=== PATIENT | female | born 1940 | race Caucasian/White ===

== ENCOUNTER 2025-08-19 16:23 | Emergency (ER) | payer MEDICARE, SELFPAY ==
--- NOTE | ~2025-08-19 | CT_ITS ---
CLINICAL HISTORY: fall CT cervical spine without contrast Comparison: None provided Findings: C1-2: Mild anterior osteoarthrosis. C2-3: Grade 1 anterolisthesis C2 over C3. C3-4: Grade 1 anterolisthesis C3 over C4. C4-5: Grade 1 anterolisthesis C4 over C5. C5-6: Moderate DJD. Mild anterior spurring. Grade 1 anterolisthesis C5 over C6. C6-7: Grade 1 anterolisthesis C6 over C7. Moderate DJD. [id number] anterior spurring. No significant degenerative change. Mild osteopenia Visualized intracranial contents are unremarkable. Soft tissues of the neck are normal. No consolidation or effusion at the lung apices. Congenital nonunion of the posterior arch of C1, midline. IMPRESSION: 1. Grade 1 anterolisthesis of C2 through C6 vertebrae over their respective inferior vertebrae. 2. Moderate degenerative joint disease at C5-C6 and C6-C7 levels with mild to moderate anterior spurring. 3. Mild osteopenia. 4. Mild anterior osteoarthrosis at C1-C2. 5. No acute cervical spine findings. This document has been electronically signed by: Korey Contreras MD on 08/19/2025 19:02:46
--- NOTE | ~2025-08-19 | XR_ITS ---
CLINICAL HISTORY: pain 1 view chest x-ray Comparison: None provided Findings: The lungs are clear. Cardiomegaly. Moderate calcified atherosclerotic disease of the aortic arch. Mild osteopenia. IMPRESSION: 1. Cardiomegaly. 2. Moderate calcified atherosclerotic disease of the aortic arch. 3. No acute cardiopulmonary findings. This document has been electronically signed by: Korey Contreras MD on 08/19/2025 17:59:14
--- NOTE | ~2025-08-19 | CT_ITS ---
CLINICAL HISTORY: fall CT head without contrast Comparison: None provided Findings: No intra-axial mass, midline shift, hydrocephalus, or acute hemorrhage. Heterogeneous low attenuation in the periventricular white matter. There is no sinus or mastoid fluid. The orbits are within normal limits. No skull fracture. IMPRESSION: 1. Chronic periventricular microvascular ischemic disease. 2. No acute intracranial findings. This document has been electronically signed by: Korey Contreras MD on 08/19/2025 19:03:40
[2025-08-19 16:31] VITALS: BP 127/78; BP 210/108; PULSE 74; PULSE 76; RESP 18; O2SAT 97; O2SAT 98; BMI 26.9
[2025-08-19 16:40] VITALS: BP 127/78; PULSE 74; RESP 18; O2SAT 97
--- NOTE | 2025-08-19 16:52 | ED.FALL ---
HPI - Fall General Chief Complaint: Fall Stated Complaint: Fall w/ head strike. No loc/thinners Time Seen by Provider: 08/19/25 16:30 History of Present Illness HPI Narrative: Patient is an 85-year-old female presents today at from the [facility] patient tripped fell hit the back of her head. There was no loss of consciousness no nausea no vomiting not on blood thinners not on Plavix patient from home. No pain. Answering question. Related Data Allergies Allergy/AdvReac Type Severity Reaction Status Date / Time Penicillins Allergy Hives Verified 08/19/25 16:41 Review of Systems Review of Systems: Positive head injury Yes all other systems are reviewed and are negative [facility] Past Medical History Attestation statement: The following information was validated with the patient. Social History Social History Alcohol intake: current Alcohol intake frequency: holidays/special occasions only Alcohol type: wine Smoked in Last 30 Days: No Use of substances other than those prescribed or required for medical reasons: No Advance Directives: No Advance Directives Information Provided: No Do you have a plan to hurt others: No Plan Physical Exam Exam: Exam: Appearance: Alert. Oriented X3. No acute distress. Eyes: Pupils equal, round and reactive to light. ENT: Pharynx normal. Neck: Normal inspection. Neck supple. No lymph nodes noted. No crepitus CVS: Normal heart rate and rhythm. Pulses normal. Normal S1 and S2 Respiratory: No respiratory distress. Breath sounds normal. No Wheezing. No rales Abdomen: Soft and nontender. No rigidity. No distention. good BS x4 Skin: Skin warm and dry. Normal skin color. Normal skin turgor. Extremities: No lower extremity edema. Neurovascular intact to all extremities. No Lacerations. No Rash Neuro: Oriented X 3. No motor deficit. No sensory deficit. Moving all extermities. No slurred speech Vital Signs: Vital Signs: Last Vital Signs Temp 98.1 F 08/19/25 19:15 Pulse 67 08/19/25 19:15 Resp 16 08/19/25 19:15 BP 142/58 H 08/19/25 19:15 Pulse Ox 99 08/19/25 19:15 O2 Del Method Room Air 08/19/25 19:15 BMI result Body Mass Index 26.9 Medical Decision Making Medical Decision Making [facility] Narrative: CT scan of the head and C-spine was grossly negative for any acute evidence of bleed or fracture. Patient is currently in stable condition. Patient's hemoglobin is 13.5. Patient's electrolytes showed a normal creatinine. Differential Diagnosis Differential Diagnoses: The differential diagnosis associated with the presentation includes Admission/Observation Consideration of admission/observation: Escalation of care including admission/observation considered Lab Data [facility] Lab Attestation statement: I reviewed the patient's lab results. 08/19/25 17:57 08/19/25 17:57 Labs: Lab Results 08/19/25 Range/Units 17:57 WBC 7.4 (4.8-10.8) X10*3/uL RBC 3.79 L (4.20-5.50) X10*6/uL Hgb 13.5 (12.0-16.0) g/dl Hct 38.7 (37.0-47.0) % MCV 102.1 H (80.0-98.0) fL MCH 35.6 H (27.0-33.0) pg MCHC 34.9 (31.0-35.0) g/dl RDW 12.3 (11.0-16.0) % Plt Count 189 (160-400) X10*3/uL MPV 8.9 L (9.4-12.3) fL Immature Gran % (Auto) 0.3 (0.0-0.4) % Neut % (Auto) 54.8 (45-73) % Lymph % (Auto) 32.0 (20-40) % Avery % (Auto) 8.0 (2-11) % Eos % (Auto) 4.2 H (0-4) % Baso % (Auto) 0.7 (0-2) % Lymph # (Auto) 2.4 (1.2-4.9) X10*3/uL Avery # (Auto) 0.6 (0.1-1.2) X10*3/uL Eos # (Auto) 0.3 (0.0-0.4) X10*3/uL Baso # (Auto) 0.1 (0.0-0.2) X10*3/uL Abs Immat Gran (auto) 0.02 (0.00-0.03) X10*3/uL Absolute Neuts (auto) 4.1 (2.0-8.3) x10*3/uL Absolute Nucleated RBC 0.000 (0.0-0.012) X10*3/uL Nucleated RBC % (auto) 0.0 (0.0-0.2) /100WBC Sodium 140 (135-145) mmol/L Potassium 3.1 L (3.3-5.1) mmol/L Chloride 104 (96-108) mmol/L Carbon Dioxide 27 (22-29) mmol/L Anion Gap 12 (12-20) BUN 14 (9-16) mg/dL Creatinine 0.63 (0.5-1.4) mg/dL Estim Creat Clear Calc 56.4 Estimated GFR > 60 Random Glucose 110 (60-115) mg/dL Calcium 9.7 (8.4-10.2) mg/dL Independent Interpretation I performed an independent interpretation of an: CT Scan (CT head negative for acute evidence of bleeding) Radiology Impression Discussion of test interpretation with radiology: I have reviewed the radiologist's reading. Chronic Conditions History of rheumatoid arthritis Social Determinants Patient?s care significantly limited by Social Determinants of Health including: Problems related to primary support group Discharge Plan Discharge Clinical Impression: Head injury Patient Disposition: Home, Self-Care Instructions: Head Injury (DC) Referrals: Physician,Nii J [Primary Care Provider, Medical] - 08/22/25 Print Language: [place]
--- OUTSIDE RECORDS SUMMARY | 2025-08-19 17:17 | XMS_ITS | Clinical Summary ---
Author Organization [facility] [address] [place] [address] [address] [place] [address] Phone Care Team Providers Care Tunnel Drier Operator Name Role Phone Evin Velazco Primary Care Provider [phone] Allergies Active Allergy Reactions Criticality Noted Date Comments Codeine Nausea And Vomiting Medium 04/08/2011 Penicillins Rash Medium 04/08/2011 Medications adalimumab (Humira,CF, Pen) 40 mg/0.4 mL pen Inject 40 mg into the skin every 14 days. - Subcutaneous 08/16/20 21 Active methotrexate 2.5 mg tablet Take 6 Tablets by mouth once a week. 06/28/20 21 Active folic acid (FOLVITE) 400 mcg tablet Take by mouth. 06/21/20 20 Active red yeast rice 600 mg capsule Take 1 Cap by mouth daily. Active valsartan-hydro CHLOROthiazide (DIOVAN-HCT) 320-25 mg per tablet TAKE 1 TABLET BY MOUTH EVERY DAY 90 tablet 3 10/01/19 25 Active atorvastatin (LIPITOR) 20 mg tabletIndicatio ns:Peripheral vascular disease, unspecified (CMS/HCC V24),Impaired fasting glucose TAKE 1 TABLET BY MOUTH EVERY DAY 90 tablet 1 03/07/20 25 Active atenoloL (TENORMIN) 50 mg tablet TAKE 1 AND 1/2 TABLETS DAILY BY MOUTH 135 tablet 06/22/20 25 Active oxyCODONE-aceta minophen (PERCOCET) 5-325 mg per tablet Take 1 tablet by mouth 4 (four) times a day. Max Daily Amount: 4 tablets 40 tablet 08/17/20 25 Active oxyCODONE-aceta minophen (PERCOCET) 5-325 mg per tablet Take 1 tablet by mouth 4 (four) times a day. Max Daily Amount: 4 tablets 40 tablet 07/20/20 25 025 Discontin ued(Reord er) Active Problems Problem Noted Date Diagnosed Date Osteoarthritis 12/23/2024 Polymyalgia rheumatica 07/21/2024 Overview (07/21/2024): Onset ~ 2001. Prednisone x 3 yrs - Senior Compliance Analyst Dr. Ernst ([facility]) Symptoms returned fall 2010 - again responded to prednisone but RF positive Mild tricuspid regurgitation 10/28/2023 Mild mitral regurgitation 10/28/2023 Mild aortic stenosis 10/28/2023 Recurrent major depressive disorder 10/28/2022 Osteoporosis 10/28/2022 White coat syndrome with hypertension 10/19/2018 PVD (peripheral vascular disease) 03/27/2017 Spondylosis of lumbosacral r egion without myelopathy or radiculopathy 01/19/2016 History of total hip arthroplasty 01/12/2015 Overview (07/21/2024): Right hip, October 2014 Impaired fasting glucose 03/16/2013 Pseudogout 02/15/2013 Overview (07/21/2024): January 2013: inflammatory fluid, chondrocalcinosis, 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 ON prednisone [id number]. Methotrexate added [id number] stopped as symptoms subsided. Return of symptoms fall 2010, now RF positive. Prednisone restarted 07/12.Methotrexate started 10/13. Remicade added 01/11 - stopped 11/16 - cost issues Last Assessment & Plan: Increase the methotrexate to 7 tab once a week Lab work in 2 months Carpal tunnel syndrome on both sides 07/12/2011 Overview (07/21/2024): Nerve Tests Done on [facility] No surgery as of 2010 Spinal stenosis 04/08/2011 Overview (07/21/2024): And scoliosis; S/p 3 epidural injections -2010 Hypercholesteremia 04/08/2011 Asthma 04/08/2011 Overview (07/21/2024): Worse as a child; previously hospitalized; never intubated Acquired hallux rigidus 04/08/2011 Overview (07/21/2024): previously treated in [facility] with PT and Voltaren gel Most recently seen by dr mauro In [place] Hypertension 04/08/2011 Encounters Date Type Department Care Team Description 07/25/2025 9:30 AM EST Office Visit Adult Medicine [address] [phone] Nor[place], [place] Primary hypertension (Primary Dx); White coat syndrome with hypertension; Hypercholesteremia; Rheumatoid arthritis, seropositive, multiple sites ([facility] V24, [facility] V28); Spondylosis of lumbosacral region without myelopathy or radiculopathy; Encounter for long-term (current) use of medications; Age-related osteoporosis without current pathological fracture; Recurrent major depressive disorder, remission status unspecified ([facility] V24); Need for prophylactic vaccination and inoculation against influenza from Last 3 Months Immunizations Immunization Administration Dates Next Due Influenza Quadravalent, MDCK , 0.5ml, preservative free (Flucelvax) 6mo and older 05/20/2019 Influenza Quadravalent, brendan mbinant, 0.5ml, preservative free (Flublok) 18yo and older 05/26/2020 Influenza trivalent, 0.5mL ( Fluad) 65yo and older 07/25/2025,06/07/2024,06/10/2023,06/08,05/16/2021,06/16/2018,05/19/2017 ,05/16/2015 Influenza trivalent, 0.5mL, preservative free (Fluarix; FluLaval; Fluzone) ages 6mo and older (Afluria) 3 years and older 07/03/2016,06/28/2014,05/25/2013,05/13 Influenza, Unspecified 06/03/2022,05/16/2021, PPD Test 09/07/2012 Pfizer SARS-CoV-2 COVID-19, mRNA, LNP-S, preservative free 11/07/2020,10/17/2020 Pneumococcal conjugate 13 va lent (Prevnar 13, PCV13) 2mo and older 01/12/2015 Pneumococcal polysaccharide 23 valent (Pneumovax 23) 2yo and older 05/31/2013 Td Tetanus diptheria (Tdvax) 7yo and older 02/04/2013 Surgical History Surgery Date Site/Laterality Comments MULTIPLE TOOTH EXTRACTIONS PROCEDURE: HISTORICAL DENTAL EXTRACTION; COMMENT: inplants on bottom OTHER SURGICAL HISTORY -2001 PROCEDURE: ARTHROSCOPY SHOULDER SURGI; COMMENT: decompression on left TONSILLECTOMY PROCEDURE: HISTORICAL TONSILLECTOMY OTHER SURGICAL HISTORY Dr. Issa PROCEDURE: HISTORY OTHER; COMMENT: Right total hip replacement 2014 CATARACT EXTRACTION PROCEDURE: HISTORICAL CATARACT REMOVAL; COMMENT: bilat OTHER SURGICAL HISTORY Left PROCEDURE: HISTORY OTHER; COMMENT: left fem pop angioplasty BREAST BIOPSY Left PROCEDURE: BX BREAST; PERC NEEDLE CORE W/IMAG GUID; COMMENT: asp Medical History Medical History Date Comments Polymyalgia rheumatica ([facility] V24) [id number] DX:Polymyalgia rheumatica ([facility]); COMMENT: Prednisone x 3 yrs Asthma DX:Asthma; COMME NT: on/off; prev hospitalized; never intubated Rheumatoid arthritis(714.0) 08/16/2011 DX:R heumatoid arthritis(714.0) Heart disease, unspecified DX:He art disease, unspecified Impaired fasting glucose 03/16/2013 DX:Impa ired fasting glucose Unspecified essential hypertension DX:Unspecified essential hypertension Family History Medical History Relation Name Comments Arthritis Mother Glaucoma Mother Breast cancer Other mat cousin Blindness Neg Hx Cataracts Neg Hx Macular degeneration Neg Hx Strabismus Neg Hx Relation Name Status Comments Brother 1 Alive stroke Brother 2 Alive Father (Age 69) heart Mother (Age 79) heart Other mat cousin Alive Sister 1 (Age 75) polymyalgi a dm Sister 2 Alive Social History Tobacco Use Types Packs/Day Years Used Date Smoking Tobacco: Former Cigarettes 0 Q uit: 09/01/1975 Smokeless Tobacco: Never Tobacco Cessation:Counseling Given: Not Answered Alcohol Use Standard Drinks/Week Comments Yes 1 (1 standard drink = 0.6 oz pur e alcohol) Housing Instability Answer Date Recorde d Are you worried that in the next 2 months you may not have stable housing? No 09/07/2024 Food Access & Nutrition Answer Date Rec orded Do you have access to a vari ety of food including fruits and vegetables? Yes 09/07/2024 Access to Healthcare Answer Date Record ed Within the last 3 months, ho w many times did you visit the emergency department for your medical care? 0 09/07/2024 Health Literacy Answer Date Recorded How often do you need to hav e someone help you when you read instructions, pamphlets, or other written material from your doctor or pharmacy? Never 09/07/2024 Caregiver: How often do you need to have someone help you when you read instructions, pamphlets, or other written material from your doctor or pharmacy? Not on file 09/07/2024 Financial Risk Answer Date Recorded How hard is it for you to pa y for the very basics like food, housing, medical care, and air conditioning / heating? Not very hard 09/07/2024 Transportation Answer Date Recorded Has the lack of transportati on kept you from meetings, work, or from getting things needed for daily living? No Has the lack of transportati on kept you from medical appointments or from getting medications? No 09/07/2024 Social Isolation Answer Date Recorded How often do you feel lonely or isolated from th ose around you? Never 09/07/2024 Food Risk Answer Date Recorded Within the past 12 months we worried whether our food would run out before we got money to buy more. Never true 09/07/2024 Within the past 12 months th e food we bought just didn't last and we didn't have money to get more. Never true 09/07/2024 Dependent Care Answer Date Recorded Do you need help finding or paying for care for your loved ones. For example, childhood development teacher or elderly care for an older adult? No 09/07/2024 Education Answer Date Recorded Do you think completing more education or training, like finishing a GED, going to college, or learning a trade, would be helpful for you? No 09/07/2024 Employment and Income Answer Date Recor ded During the last four weeks, have you been actively looking for work? No 09/07/2024 Living Situation Answer Date Recorded What is your living situation? Unrecognized valu e 09/07/2024 Comments No Sex and Gender Information Value Date Recorded Sex Assigned at Not on file Legal Sex Female 10:03 AM EST Gender Identity Not on file Sexual Orientation Not on file Obstetrics History Para Term AB IAB SAB Ectopic Multiple Livin g Live Births 3 3 3 3 Date Outcome GA Total Labor Labor/2nd/3rd Weight Sex Type Anes PTL Kenisha A1 A5 Name Clin Term Term Term Last Filed Vital Signs Vital Sign Reading Time Taken Comments Blood Pressure 138/88 07/25/2025 9:58 AM EST Pulse 66 07/25/2025 9:22 AM EST Temperature 36.1 C (96.9 F) 07/25/2025 9:22 AM EST Respiratory Rate 14 07/25/2025 9:22 AM EST Oxygen Saturation 98% 07/25/2025 9:22 AM EST Inhaled Oxygen Concentration - - Weight 64 kg (141 lb) 07/25/2025 9:22 AM EST Height 160 cm (5' 3 ) 07/25/2025 9:22 AM EST Body Mass Index 24.98 07/25/2025 9:22 AM EST Plan of Treatment Upcoming Encounters Date Type Department Care Team (Late st Contact Info) Description 10/25/2025 11:00 AM EST Office Visit Adult Medicine [address] [phone] Evin Velazco PA [address] [place] [phone] Health Maintenance Due Date Last Done Comments Naloxone Order 1938 Opioid Substance Agreement 1938 Pain Assessment 1938 Zoster Vaccines (1 of 2) 1988 RSV Immunization Adult Patients (1 - 1-dose 75+ series) 2013 Medicare Annual Wellness Visit 08/10/2022 COVID-19 Vaccine ( season) 2025 06/11/2021, 11/07/2020, 10/17/2020 Drug Screen 09/07/2025 09/07/2024, 09/07/2024 Falls Risk Assessment 09/07/2025 09/07/2024 Hypertension/CHF/CAD Annual BMP Blood Test 09/07/2025 09/07/2024, 08/06/2023 Social Influencers of Health Screening 09/07/2025 09/07/2024 Cholesterol Screening (Lipid Panel) 09/07/2029 09/07/2024, 08/06/2023 Osteoporosis Screening (Bone Density Screening) 07/19/2034 07/19/2019 DTaP,Tdap,and Td Vaccines Discontinued 02/04/2013 Pneumococcal Vaccine: 50+ Years Completed 01/12/2015, 05/31/2013 Depression Screening Completed 09/07/2024 Influenza Vaccine Completed 07/25/2025, , 06/10/2023, Additional history exists HIB Vaccines Aged Out No longer eligi ble based on patient's age to complete this topic HPV Vaccines Aged Out No longer eligi ble based on patient's age to complete this topic Hepatitis A Vaccines Aged Out No long er eligible based on patient's age to complete this topic Hepatitis B Vaccines Aged Out No long er eligible based on patient's age to complete this topic IPV Vaccines Aged Out No longer eligi ble based on patient's age to complete this topic MMR Vaccines Aged Out No longer eligi ble based on patient's age to complete this topic Meningococcal ACWY Vaccine Aged Out N o longer eligible based on patient's age to complete this topic Meningococcal B Vaccine Aged Out No l onger eligible based on patient's age to complete this topic RSV Immunization Patients Under 20 months Aged Out No longer eligible based on patient's age to complete this topic Varicella Vaccines Aged Out No longer eligible based on patient's age to complete this topic Procedures Procedure Name Priority Date/Time Associated Diagnosis Comments COMPREHENSIVE METABOLIC PANEL Routine 09/07/2024 1:33 PM EST Osteoporosis, unspecified osteoporosis type, unspecified pathological fracture presence Recurrent major depressive disorder, remission status unspecified ([facility] V24) Rheumatoid arthritis, seropositive, multiple sites ([facility] V24, [facility] V28) Polymyalgia rheumatica ([facility] V24) Mild mitral regurgitation Mild aortic stenosis PVD (peripheral vascular disease) ([facility] V24) Hypercholesteremia Primary hypertension LIPID PANEL WITH REFLEX TO DIRECT LDL Routine 09/07/2024 1:33 PM EST Osteoporosis, unspecified osteoporosis type, unspecified pathological fracture presence Recurrent major depressive disorder, remission status unspecified ([facility] V24) Rheumatoid arthritis, seropositive, multiple sites ([facility] V24, [facility] V28) Polymyalgia rheumatica ([facility] V24) Mild mitral regurgitation Mild aortic stenosis PVD (peripheral vascular disease) ([facility] V24) Hypercholesteremia Primary hypertension DRUG ABUSE SCREEN EXPANDED WITH REFLEX CONFIRMATION, URINE Routine 09/07/2024 1:33 PM EST Osteoporosis, unspecified osteoporosis type, unspecified pathological fracture presence Recurrent major depressive disorder, remission status unspecified ([facility] V24) Rheumatoid arthritis, seropositive, multiple sites ([facility] V24, [facility] V28) Polymyalgia rheumatica ([facility] V24) Mild mitral regurgitation Mild aortic stenosis PVD (peripheral vascular disease) ([facility] V24) Hypercholesteremia Primary hypertension rn long term care (current) use of opiate analgesic DXA BONE DENSITY STUDY 1+ SITS AXIAL SKEL Routine 07/19/2019 11:15 AM EST Rheumatoid arthritis with rheumatoid factor of multiple sites without organ or systems involvement ([facility] V24, [facility] V28) Other halfway (current) drug therapy Menopausal and female climacteric states from Last 3 Months or Most Recently Relevant to Health Maintenance Results * (ABNORMAL) Drug abuse screen expanded with reflex confirmation, urine (09/07/2024 1:33 PM EST) Amphetamine Screen, Ur Negative Negative LAB CHEMISTRY METHOD 5 5:08 PM [facility] Comment:Certain OTC medicati ons containing ephedrine, phenylephrine, pseudoephedrine and phenylpropanolamine can cause false positive results. Barbiturate Screen, Ur Negative Negative LAB CHEMISTRY METHOD 5 5:08 PM [facility] Benzodiazepine Screen, Ur Negative Negative LAB CHEMISTRY METHOD 5 5:08 PM [facility] Cocaine Screen, Ur Negative Negative LAB CHEMISTRY METHOD 5 5:08 PM [facility] Opiate Screen, Ur Negative Negative LAB CHEMISTRY METHOD 5 5:08 PM [facility] Cannabinoid (THC) Screen, Ur Negative Negative LAB CHEMISTRY METHOD 5 5:08 PM [facility] Comment:Specimens from patie nts taking pantoprazole sodium (Protonix) have been shown to produce false positive results. Fentanyl, Ur Negative Negative LAB CHEMISTRY METHOD 5 5:08 PM [facility] Oxycodone Screen, Ur Positive(A ) Negative LAB CHEMISTRY METHOD 5 5:08 PM [facility] Urine Urine specimen obtained by clean catch procedure / Unknown Non-blood Collection / Unknown 09/07/2024 1:33 PM EST 09/07/2024 1:33 PM EST [facility] - 09/07/2024 5:08 PM EST Assay cutoffs: Amphetamines 1000 ng/mL Barbiturates 200 ng/mL Benzodiazepines 200 ng/mL Cocaine 300 ng/mL Fentanyl 1 ng/mL Opiates 300 ng/mL Oxycodone 100 ng/mL THC 50 ng/mL Semi-quantitative assay for screening purposes only. Unconfirmed screening result should not be used for non-medical purposes. *POSITIVE RESULTS ARE AUTOMATICALLY SENT FOR ALTERNATE METHOD CONFIRMATION* Evin ROBBINS LAB URINE ORDERABLES Yanet l Result [facility] [address] [place] [address], * Lipid panel with reflex to direct LDL (09/07/2024 1:33 PM EST) Cholesterol 183 0 - 200 mg/dL LAB CHEMISTRY METHOD 09/07/2024 4:54 PM [facility] Triglycerides 123 0 - 150 mg/dL LAB CHEMISTRY METHOD 09/07/2024 4:54 PM [facility] HDL 91 >=40 mg/dL LAB CHEMISTRY METHOD 09/07/2024 4:54 PM EST [facility] LDL Calculated 67 0 - 100 mg/dL LAB CHEMISTRY METHOD 09/07/2024 4:54 PM EST [facility] VLDL Cholesterol Judson 24.6 mg/dL LAB CHEMISTRY METHOD 09/07/2024 4:54 PM [facility] Non HDL Chol. (LDL+VLDL) 92 <145 mg/dL LAB CHEMISTRY METHOD 09/07/2024 4:54 PM [facility] Chol/HDL Ratio 2.0 0.0 - 4.4 LAB CHEMISTRY METHOD 09/07/2024 4:54 PM [facility] Blood Venous blood specimen / Unknown Venipuncture / Unknown 09/07/2024 1:33 PM EST 09/07/2024 1:33 PM EST Evin ROBBINS LAB BLOOD ORDERABLES Yanet gordon Result [facility] [address] [place] [address], [place] [phone] * (ABNORMAL) Comprehensive metabolic panel (09/07/2024 1:33 PM EST) Sodium 133 133 - 145 mmol/L LAB CHEMISTRY METHOD 09/07/2024 4:48 PM [facility] Potassium 4.2 3.5 - 5.5 mmol/L LAB CHEMISTRY METHOD 09/07/2024 4:48 PM [facility] Chloride 98 96 - 110 mmol/L LAB CHEMISTRY METHOD 09/07/2024 4:48 PM [facility] CO2 31 21 - 32 mmol/L LAB CHEMISTRY METHOD 09/07/2024 4:48 PM [facility] Anion Gap 4 3 - 11 LAB CHEMISTRY METHOD 09/07/2024 4:48 PM [facility] Glucose 122(H) 70 - 100 mg/dL LAB CHEMISTRY METHOD 09/07/2024 4:48 PM [facility] BUN 13 5 - 25 mg/dL LAB CHEMISTRY METHOD 09/07/2024 4:48 PM [facility] Creatinine 0.72 0.50 - 1.10 mg/dL LAB CHEMISTRY METHOD 09/07/2024 4:48 PM [facility] eGFR 82 >=60 mL/min/1. 73m2 LAB CHEMISTRY METHOD 09/07/2024 4:48 PM [facility] Comment:Calculation based on the Chronic Kidney Disease Epidemiology Collaboration (CKD-EPI) equation refit without adjustment for race. BUN/Creatinine Ratio 18.1 LAB CHEMISTRY METHOD 09/07/2024 4:48 PM [facility] Calcium 9.9 8.5 - 10.5 mg/dL LAB CHEMISTRY METHOD 09/07/2024 4:48 PM [facility] AST (SGOT) 39 10 - 42 unit/L LAB CHEMISTRY METHOD 09/07/2024 4:48 PM [facility] ALT (SGPT) 26 10 - 60 unit/L LAB CHEMISTRY METHOD 09/07/2024 4:48 PM [facility] Alkaline Phosphatase 77 42 - 121 unit/L LAB CHEMISTRY METHOD 09/07/2024 4:48 PM [facility] Total Protein 7.5 6.0 - 8.0 g/dL LAB CHEMISTRY METHOD 09/07/2024 4:48 PM [facility] Albumin 4.0 3.2 - 5.0 g/dL LAB CHEMISTRY METHOD 09/07/2024 4:48 PM [facility] Total Bilirubin 0.7 0.0 - 1.4 mg/dL LAB CHEMISTRY METHOD 09/07/2024 4:48 PM [facility] Blood Venous blood specimen / Unknown Venipuncture / Unknown 09/07/2024 1:33 PM EST 09/07/2024 1:33 PM EST us Evin ROBBINS LAB BLOOD ORDERABLES Yanet heidi Result [facility] [address] [place] [address], * DXA BONE DENSITY STUDY 1+ SITS AXIAL SKEL (07/19/2019 11:15 AM EST) Anatomical Region Laterality Modality Bone Densitometr y 05/31/2019 9:24 AM EDT Narrative 07/19/2019 4:19 PM EST BONE DENSITY Lumbar Spine T-score is -0.1 (SD relative to 20-29 y/o adult) Z-score is +2.6 (SD relative to age matched peers) This is normal by criteria defined by the WHO. Left Hip T-score is -1.9 Z-score is +0.4 This is consistent with osteopenia by criteria defined by the WHO. LEFT WRIST T-score is -2.7 Z-score is + 0.5 This is consistent with osteoporosis. Comparison exam(s): significant decrease in bone density of wrist when compared to most recent bone density examination Confidence level is +/-95%. Impression: Based on the World Health Organization criteria, Olimpia Hardin should be classified as having osteoporosis. The [facility] Department of Internal Medicine recommends using National Osteoporosis Foundation (NOF) guidelines in treatment decisions related to osteoporosis. NOF guidelines suggest considering treatment for postmenopausal women and men aged 50 or older presenting with the following: History of hip or vertebral fracture. T-score less than or equal to -2.5 (DXA) at the femoral neck, total hip, or spine, after appropriate evaluation to exclude secondary causes. Low bone mass (T-score between -1.0 and -2.5 at the femoral neck or spine) AND a 10-year probability of a hip fracture greater than or equal to 3% OR a 10-year probability of a major osteoporosis-related fracture greater than or equal to 20% based on the [place]-adapted WHO algorithm Please note that all treatment decisions require clinical judgment and consideration of individual patient factors, including patient preferences, co-morbidities, previous drug use, risk factors not captured in the FRAX model (e.g., frailty, falls, vitamin D deficiency, increased bone turnover, interval significant decline in bone density) and possible under- or over-estimation of fracture risk by FRAX. Procedure Note Kandy Szymanski MD - 08/20/2022 BONE DENSITY Lumbar Spine T-score is -0.1 (SD relative to 20-29 y/o adult) Z-score is +2.6 (SD relative to age matched peers) This is normal by criteria defined by the WHO. Left Hip T-score is -1.9 Z-score is +0.4 This is consistent with osteopenia by criteria defined by the WHO. LEFT WRIST T-score is -2.7 Z-score is + 0.5 This is consistent with osteoporosis. Comparison exam(s): significant decrease in bone density of wrist whencompared to most recent bone density examination Confidence level is +/-95%. Impression: Based on the World Health Organization criteria, Olimpia Hardin should beclassified as having osteoporosis. The [facility] Department of Internal Medicine recommendsusing National Osteoporosis Foundation (NOF) guidelines in treatmentdecisions related to osteoporosis. NOF guidelines suggest consideringtreatment for postmenopausal women and men aged 50 or older presentingwith the following: History of hip or vertebral fracture. T-score less than or equal to -2.5 (DXA) at the femoral neck, total hip,or spine, after appropriate evaluation to exclude secondary causes. Low bone mass (T-score between -1.0 and -2.5 at the femoral neck or spine)AND a 10-year probability of a hip fracture greater than or equal to 3% ORa 10-year probability of a major osteoporosis-related fracture greaterthan or equal to 20% based on the [place]-adapted WHO algorithm Please note that all treatment decisions require clinical judgment andconsideration of individual patient factors, including patientpreferences, co-morbidities, previous drug use, risk factors not capturedin the FRAX model (e.g., frailty, falls, vitamin D deficiency, increasedbone turnover, interval significant decline in bone density) and possibleunder- or over-estimation of fracture risk by FRAX. Boyd Woods MD IM DXA PROCEDURES Final Res ult from Last 3 Months or Most Recently Relevant to Health Maintenance Insurance [employer] Care Teams Tunnel Drier Operator Relationship Specialty Start Date End Date Evin Velazco PA [address] [place] [address] PCP - General Internal Medicine 06/07/21
[2025-08-19 18:02] LABS: MANUAL DIFF FLAG NO
[2025-08-19 18:04] LABS: Hematocrit 38.7 % (37.0-47.0); Hemoglobin 13.5 g/dl (12.0-16.0); Imm Gran Abs Auto 0.02 X10*3/uL (0.00-0.03); Imm Gran Pct Auto 0.3 % (0.0-0.4); Lymphocytes Absolute Auto 2.4 X10*3/uL (1.2-4.9); Mean Corpuscular HGB Conc 34.9 g/dl (31.0-35.0); Mean Corpuscular Hemoglobin 35.6 pg (27.0-33.0); Mean Corpuscular Volume 102.1 fL (80.0-98.0); NRBC Abs Auto 0.000 X10*3/uL (0.0-0.012); NRBC Pct Auto 0.0 /100WBC (0.0-0.2); Platelet Count 189 X10*3/uL (160-400); Red Blood Count 3.79 X10*6/uL (4.20-5.50); White Blood Count 7.4 X10*3/uL (4.8-10.8)
[2025-08-19 18:14] LABS: Anion Gap 12 (12-20); Blood Urea Nitrogen 14 mg/dL (9-16); Calcium 9.7 mg/dL (8.4-10.2); Carbon Dioxide 27 mmol/L (22-29); Chloride 104 mmol/L (96-108); Creatinine Clr Calc Pharmacy 56.4; Estimated Glomerular Filt Rate > 60; Potassium 3.1 mmol/L (3.3-5.1); Sodium 140 mmol/L (135-145)
[2025-08-19 19:15] VITALS: BP 142/58; PULSE 67; RESP 16; TEMP 36.7; O2SAT 99
[2025-08-19 19:55] VITALS: BP 142/58; PULSE 67; RESP 16; TEMP 36.7; O2SAT 99
== END 2025-08-19 20:06 | disposition home or self-care (01) ==
PROVIDERS: Emergency Provider Emergency Medicine Emergency Medical Services
DX: S09.90XA Unspecified injury of head, initial encounter (principal); W01.0XXA Fall on same level from slipping, tripping and stumbling without subsequent striking against object, initial encounter; Y93.89 Activity, other specified; Y92.29 Other specified public building as the place of occurrence of the external cause; Y99.8 Other external cause status; Z79.899 Other long term (current) drug therapy
CPT/HCPCS: 36415; 70450; 71045; 72125; 80048; 85025; 99284

== ENCOUNTER → 2025-08-19 16:51 | Outpatient (BNV) | payer MEDICARE, SELFPAY | PROVIDERS: Emergency Provider Emergency Medicine Emergency Medical Services; Visit Provider Radiology Diagnostic Radiology | DX: M50.322 Other cervical disc degeneration at C5-C6 level (principal); M47.812 Spondylosis without myelopathy or radiculopathy, cervical region; Z04.3 Encounter for examination and observation following other accident; I67.82 Cerebral ischemia; I70.0 Atherosclerosis of aorta; I51.7 Cardiomegaly | CPT/HCPCS: 70450; 71045; 72125 ==